=== PATIENT | female | born 1995 | race Caucasian/White ===

== ENCOUNTER → 2016-10-31 | Outpatient (REF) | payer OTHER ==
[~2016-10-31] MED LIST: DORYX
== END ==
LOC: M LAB REF 09:02
PROVIDERS: ATTEND Nurse Practitioner Family
DX: Z79.899 Other long term (current) drug therapy (principal)

== ENCOUNTER → 2017-07-17 | Outpatient (REF) | payer OTHER ==
[2017-07-17 09:36] LABS: ALBUMIN 3.6 GM/DL (3.2-5.2); ANION GAP 5 MEQ/L (8-16); BLOOD UREA NITROGEN 11 MG/DL (7-18); CARBON DIOXIDE LEVEL 30 MEQ/L (21-32); CHLORIDE LEVEL 106 MEQ/L (98-107); CREATININE FOR GFR 0.85 MG/DL (0.55-1.02); GLOMERULAR FILTRATION RATE > 60.0 (>60); GLUCOSE, FASTING 73 MG/DL (70-105); POTASSIUM SERUM 4.4 MEQ/L (3.5-5.1); SODIUM LEVEL 141 MEQ/L (136-145)
== END ==
LOC: M LAB REF 09:22
PROVIDERS: ATTEND Nurse Practitioner Family
DX: L70.0 Acne vulgaris (principal)

== ENCOUNTER → 2018-02-04 | Outpatient (REF) | payer OTHER ==
[2018-02-04 12:36] LABS: ANION GAP 5 MEQ/L (8-16); CARBON DIOXIDE LEVEL 29 MEQ/L (21-32); CHLORIDE LEVEL 105 MEQ/L (98-107); POTASSIUM SERUM 4.6 MEQ/L (3.5-5.1); SODIUM LEVEL 139 MEQ/L (136-145)
== END ==
LOC: M LABDRAW1 11:59
DX: L70.0 Acne vulgaris (principal); Z51.81 Encounter for therapeutic drug level monitoring; Z79.899 Other long term (current) drug therapy

== ENCOUNTER → 2018-07-08 | Outpatient (REF) | payer OTHER ==
[2018-07-08 14:04] LABS: CHLAMYDIA DNA AMPLIFICATION NEGATIVE (NEGATIVE); GC DNA AMPLIFICATION NEGATIVE (NEGATIVE)
== END ==
LOC: M LAB REF 11:21
DX: N39.0 Urinary tract infection, site not specified (principal)

== ENCOUNTER → 2020-04-11 | Outpatient (REF) | payer OTHER ==
[2020-05-28 19:46] LABS: APPEARANCE, URINE CLEAR (CLEAR); BACTERIA, URINE AUTO NEGATIVE (NEGATIVE); BILIRUBIN, URINE AUTO NEGATIVE (NEGATIVE); BLOOD, URINE BLOOD NEGATIVE (NEGATIVE); COLOR, URINE YELLOW (YELLOW); GLUCOSE, URINE (UA) AUTO NEGATIVE (NEGATIVE); KETONE, URINE AUTO NEGATIVE (NEGATIVE); LEUKOCYTE ESTERASE, URINE AUTO NEGATIVE (NEGATIVE); MUCUS, URINE SMALL (NEGATIVE); NITRITE, URINE AUTO NEGATIVE (NEGATIVE); PROTEIN, URINE AUTO NEGATIVE (NEGATIVE); RBC, URINE AUTO 2 /HPF (0-3); SPECIFIC GRAVITY URINE AUTO 1.015 (1.002-1.035); SQUAMOUS EPITHELIAL CELL UR AU 1 /HPF (0-6); UROBILINOGEN, URINE AUTO 0.2 mg/dL (0.0-2.0); WBC, URINE AUTO 1 /HPF (0-3)
[2020-06-07 00:44] LABS: BLOOD UREA NITROGEN 15 MG/DL (7-18); CALCIUM LEVEL 9.5 MG/DL (8.5-10.1); CARBON DIOXIDE LEVEL 30 MEQ/L (21-32); CHLORIDE LEVEL 104 MEQ/L (98-107); CREATININE FOR GFR 0.89 MG/DL (0.55-1.30); GLOMERULAR FILTRATION RATE > 60.0 (>60); GLUCOSE, FASTING 84 MG/DL (70-100); POTASSIUM SERUM 4.9 MEQ/L (3.5-5.1); SODIUM LEVEL 139 MEQ/L (136-145)
== END ==
LOC: M WUC 11:00
PROVIDERS: ATTEND Physician Assistant Medical
DX: R35.0 Frequency of micturition (principal)

== ENCOUNTER → 2021-05-22 | Outpatient (REF) ==
[2021-05-22 13:51] LABS: RSV AMPLIFICATION NEGATIVE (NEGATIVE)
== END ==
LOC: M LABSMTC 09:33
PROVIDERS: ATTEND Pediatrics
DX: Z20.822 Contact with and (suspected) exposure to COVID-19 (principal)

== ENCOUNTER → 2021-05-22 | Outpatient (REF) | payer OTHER | LOC: M LAB REF 16:10 | PROVIDERS: ATTEND Physician Assistant | DX: J02.9 Acute pharyngitis, unspecified (principal) ==

== ENCOUNTER → 2021-07-12 | Outpatient (REF) ==
[2021-07-12 17:15] LABS: RSV AMPLIFICATION NEGATIVE (NEGATIVE)
== END ==
LOC: M EMP 16:02
PROVIDERS: ATTEND Family Medicine
DX: Z20.822 Contact with and (suspected) exposure to COVID-19 (principal)

== ENCOUNTER → 2021-07-17 | Outpatient (REF) | LOC: M LABSMTC 08:57 | PROVIDERS: ATTEND Family Medicine | DX: Z20.822 Contact with and (suspected) exposure to COVID-19 (principal) ==

== ENCOUNTER → 2021-08-21 | Outpatient (CLI) | payer BC, OTHER ==
[2021-08-21 15:14] LABS: BASO # 0.1 10^3/uL (0.0-0.2); BASO % 0.6 % (0.0-1.0); EOS # 0.2 10^3/uL (0.0-0.5); EOS % 2.1 % (0.0-3.0); HEMATOCRIT 36.1 % (36.0-47.0); HEMOGLOBIN 12.1 g/dl (12.0-15.5); LYMPH # 2.1 10^3/uL (1.5-5.0); LYMPH % 19.2 % (24.0-44.0); MEAN CORPUSCULAR HEMOGLOBIN 30.9 pg (27.0-33.0); MEAN CORPUSCULAR HGB CONC 33.5 g/dl (32.0-36.5); MEAN CORPUSCULAR VOLUME 92.3 fl (80.0-96.0); MONO # 0.9 10^3/uL (0.0-0.8); MONO % 8.6 % (2.0-8.0); NEUTROPHILS # 7.5 10^3/uL (1.5-8.5); NEUTROPHILS % 68.6 % (36.0-66.0); PLATELET COUNT, AUTOMATED 334 10^3/uL (150-450); RED BLOOD COUNT 3.91 10^6/uL (4.00-5.40); WHITE BLOOD COUNT 10.9 10^3/uL (4.0-10.0)
[2021-08-21 16:27] LABS: HEPATITIS C VIRUS ABY INDEX 0.1 INDEX (<0.8); HIV 1&2 SCREEN CENTAUR NEGATIVE (NEGATIVE)
== END ==
LOC: M PLALAB 14:00
PROVIDERS: ATTEND Obstetrics & Gynecology
DX: Z34.01 Encounter for supervision of normal first pregnancy, first trimester (principal)

== ENCOUNTER → 2021-09-25 | Outpatient (REF) | LOC: M LABSMTC 12:52 | PROVIDERS: ATTEND Family Medicine | DX: Z11.52 Encounter for screening for COVID-19 (principal) ==

== ENCOUNTER → 2021-10-11 | Outpatient (CLI) | payer BC, OTHER | LOC: M WHC 13:29 | PROVIDERS: ATTEND Obstetrics & Gynecology | DX: Z34.02 Encounter for supervision of normal first pregnancy, second trimester (principal) ==

== ENCOUNTER → 2021-10-26 | Outpatient (CLI) | payer BC, OTHER | LOC: M WHC 07:17 | PROVIDERS: ATTEND Advanced Practice Midwife | DX: Z34.02 Encounter for supervision of normal first pregnancy, second trimester (principal) ==

== ENCOUNTER → 2021-11-09 | Outpatient (CLI) | payer BC, OTHER | LOC: M WHC 09:23 | PROVIDERS: ATTEND Advanced Practice Midwife | DX: O36.5920 Maternal care for other known or suspected poor fetal growth, second trimester, not applicable or unspecified (principal); Z3A.23 23 weeks gestation of pregnancy ==

== ENCOUNTER → 2021-12-07 | Outpatient (CLI) | payer BC, OTHER ==
[2021-12-07 13:23] LABS: HEMATOCRIT 32.3 % (36.0-47.0); HEMOGLOBIN 10.6 g/dl (12.0-15.5); MEAN CORPUSCULAR HEMOGLOBIN 32.1 pg (27.0-33.0); MEAN CORPUSCULAR HGB CONC 32.8 g/dl (32.0-36.5); MEAN CORPUSCULAR VOLUME 97.9 fl (80.0-96.0); PLATELET COUNT, AUTOMATED 268 10^3/uL (150-450); WHITE BLOOD COUNT 13.9 10^3/uL (4.0-10.0)
[2021-12-07 13:33] LABS: ALBUMIN 2.7 GM/DL (3.2-5.2); ALT/SGPT 12 U/L (12-78); BILIRUBIN,TOTAL 0.2 MG/DL (0.2-1.0); BLOOD UREA NITROGEN 6 MG/DL (7-18); CALCIUM LEVEL 8.5 MG/DL (8.5-10.1); CARBON DIOXIDE LEVEL 27 MEQ/L (21-32); CHLORIDE LEVEL 105 MEQ/L (98-107); GLOMERULAR FILTRATION RATE > 60.0 (>60); GLUCOSE CHALLENGE TEST 1 HOUR 140 MG/DL (LESS THAN 140); GLUCOSE, FASTING 140 MG/DL (70-100); POTASSIUM SERUM 4.1 MEQ/L (3.5-5.1); SODIUM LEVEL 137 MEQ/L (136-145); TOTAL PROTEIN 5.8 GM/DL (6.4-8.2)
[2021-12-07 13:41] LABS: CREATININE,RANDOM URINE 91.3 MG/DL; TOTAL PROTEIN,RANDOM URINE 13.4 MG/DL (0.0-12.0)
[2021-12-07 16:09] LABS: GC DNA AMPLIFICATION NEGATIVE (NEGATIVE)
== END ==
LOC: M PLALAB 07:59
PROVIDERS: ATTEND Obstetrics & Gynecology
DX: Z34.92 Encounter for supervision of normal pregnancy, unspecified, second trimester (principal); Z3A.24 24 weeks gestation of pregnancy

== ENCOUNTER → 2021-12-20 | Outpatient (CLI) | payer BC, OTHER | LOC: M LAB 08:09 | PROVIDERS: ATTEND Obstetrics & Gynecology | DX: R73.09 Other abnormal glucose (principal) ==

== ENCOUNTER → 2022-02-12 | Outpatient (REF) | payer BC | LOC: M PLALAB 07:57 | PROVIDERS: ATTEND Advanced Practice Midwife | DX: Z36.85 Encounter for antenatal screening for Streptococcus B (principal) ==

== ENCOUNTER → 2022-02-16 | Outpatient (CLI) | payer BC | LOC: M WHC 07:31 | PROVIDERS: ATTEND Advanced Practice Midwife | DX: O24.419 Gestational diabetes mellitus in pregnancy, unspecified control (principal) ==

== ENCOUNTER 2022-02-24 06:07 | Inpatient (IN) | payer BC ==
[2022-02-24] VITALS (31 sets, daily range): BP systolic 98–163; BP diastolic 53–78
[~2022-02-24] VITALS: Ht 165.1 cm; Wt 76.0 kg
[2022-02-24] MEDS ORDERED: PRENTAB9 PO (06:20)
[2022-02-24] MEDS ORDERED: FAMO10TA50 PO (06:20)
[2022-02-24] MEDS ORDERED: HOME MED LIST COMPLETE! XX SCH (06:25)
[2022-02-24] MEDS ORDERED: PENICILLIN G POTASSIUM IV 5 MU in D5W MINI-BAG PLUS 100 ML IV STA (07:16)
[2022-02-24] MEDS ORDERED: LACTATED RINGER'S 1000 ML IV STA (07:16)
[2022-02-24] MEDS ORDERED: METHYLERGONOVINE MALEATE 0.2 MG/ML VIAL (J2210) IM PRN (07:20)
[2022-02-24] MEDS ORDERED: TRANEXAMIC ACID INJection 1,000 MG in NS 100 ML IV PRN (07:20)
[2022-02-24] MEDS ORDERED: LIDOCAINE 1% MDV 20ML VIAL INFIL PRN (07:20)
[2022-02-24] MEDS ORDERED: LR 1,000 ML IV SCH ×2 (07:20→18:20)
[2022-02-24] MEDS ORDERED: OXYTOCIN DRIP 30 UNITS in IV 1 EA IV PRN (07:20)
[2022-02-24] MEDS ORDERED: CARBOPROST TROMETHAMINE 250 MCG/ML AMP IM PRN (07:20)
[2022-02-24 07:36] LABS: HEMATOCRIT 31.1 % (36.0-47.0); HEMOGLOBIN 10.5 g/dl (12.0-15.5); MEAN CORPUSCULAR HEMOGLOBIN 31.8 pg (27.0-33.0); MEAN CORPUSCULAR HGB CONC 33.8 g/dl (32.0-36.5); MEAN CORPUSCULAR VOLUME 94.2 fl (80.0-96.0); PLATELET COUNT, AUTOMATED 234 10^3/uL (150-450); WHITE BLOOD COUNT 12.5 10^3/uL (4.0-10.0)
[2022-02-24] MEDS ORDERED: FENTANYL 2MCG/ML ROPIVACAINE 0.2% IN 0.9% NACL 100ML IVBAG As Ordered ONE (08:18)
[2022-02-24] MEDS: PRENATAL VITAMINS CHEWABLE TABLET PO SCH (09:00)
[2022-02-24] MEDS ORDERED: OXYTOCIN DRIP 30 UNITS in IV 1 EA IV SCH ×2 (09:35→18:20)
[2022-02-24] MEDS ORDERED: LR 500 ML IV PRN (09:40)
[2022-02-24] MEDS ORDERED: NALOXONE INJ 0.4MG/1ML VIAL (J2310 PER 1MG) IV PRN (09:40)
[2022-02-24] MEDS ORDERED: ONDANSETRON 4MG 2ML VIAL IV PRN (09:40)
[2022-02-24] MEDS ORDERED: diphenhydrAMINE 50MG/ML VIAL (J1200) IV PRN (09:40)
[2022-02-24] MEDS ORDERED: EPIDURAL/PCA KEYS XX PRN (09:40)
[2022-02-24] MEDS ORDERED: ePHEDrine SULFATE 25 MG/5 ML(5MG/ML) SYRINGE IVP PRN (09:40)
[2022-02-24] MEDS ORDERED: FENTANYL/ROPIVACAINE/NACL BAG 100 ML EPIDURAL SCH (09:40)
[2022-02-24] MEDS: PENICILLIN G POTASSIUM IV 2.5 MU in IV 1 EA IV SCH ×2 (11:43→15:57)
[2022-02-24] MEDS: FAMOTIDINE 20 MG TAB PO SCH (12:40)
[2022-02-24] MEDS ORDERED: ACETAMINOPHEN 500 MG TAB PO PRN (18:20)
[2022-02-24] MEDS ORDERED: METHYLERGONOVINE MALEATE 0.2 MG TAB PO PRN (18:20)
[2022-02-24] MEDS ORDERED: RHOGAM 300 MCG (1500 IU) INJ (J2790) IM SCH (18:20)
[2022-02-24] MEDS ORDERED: ACETAMINOPHEN TAB 650MG DOSE (2X325MG) PO PRN (18:20)
[2022-02-24] MEDS ORDERED: DOCUSATE SODIUM 100MG CAPSULE PO PRN (18:20)
[2022-02-24] MEDS ORDERED: IBUPROFEN 600MG TAB PO PRN (18:20)
[2022-02-25 05:43] VITALS: BP 114/60
[2022-02-25] MEDS: DIBUCAINE 1% OINTMENT 30GM TOP PRN ×2 (06:51→17:29)
[2022-02-25] MEDS: PRENATAL VITAMINS CHEWABLE TABLET PO SCH (08:16)
[2022-02-25] MEDS: FAMOTIDINE 20 MG TAB PO SCH (08:18)
[2022-02-25 18:00] VITALS: BP 111/63
[2022-02-25] MEDS: IBUPROFEN 800 MG TAB PO PRN (20:24)
[2022-02-26 06:18] VITALS: BP 112/56
[2022-02-26] MEDS: PRENATAL VITAMINS CHEWABLE TABLET PO SCH (08:42)
[2022-02-26] MEDS: FAMOTIDINE 20 MG TAB PO SCH (08:42)
[2022-02-26] MEDS: IBUPROFEN 800 MG TAB PO PRN (08:43)
[2022-02-26] MEDS ORDERED: MEASLES,MUMPS,RUBELLA VACCINE INJ (MMR-II) (90707) SC.IMMUN ONE (09:00)
[2022-02-26] MEDS ORDERED: IBUP80TA PO (12:36)
[2022-02-26] MEDS ORDERED: ACET-683 PO (12:36)
== END 2022-02-26 13:15 | disposition home or self-care (01) | DRG 560 ==
LOC: M LDO 06:07 → M LDI 07:06 → M OBS 22:51
PROVIDERS: ADMIT Obstetrics & Gynecology; ATTEND Obstetrics & Gynecology
PROC: 10E0XZZ Delivery of Products of Conception, External Approach (ICD-10-PCS; principal; 2022-02-24)
PROC: 0HQ9XZZ Repair Perineum Skin, External Approach (ICD-10-PCS; 2022-02-24)
DX: O24.429 Gestational diabetes mellitus in childbirth, unspecified control (principal); O99.824 Streptococcus B carrier state complicating childbirth; Z37.0 Single live birth; Z3A.37 37 weeks gestation of pregnancy; O70.0 First degree perineal laceration during delivery

== ENCOUNTER 2022-07-12 18:29 | Emergency (ER) | payer BC ==
[~2022-07-12] VITALS: Ht 165.1 cm; Wt 65.0 kg
[~2022-07-12 18:29] MED LIST changes: +ACET-683 PO; +FAMO10TA50 PO; +IBUP80TA PO; +PRENTAB9 PO
[2022-07-12 18:31] VITALS: BP 123/58
[2022-07-12] MEDS ORDERED: GLYC2TAB18 PO (19:25)
== END 2022-07-12 23:48 | disposition left against medical advice (07) ==
LOC: M ED 18:29
DX: Z53.21 Procedure and treatment not carried out due to patient leaving prior to being seen by health care provider (principal)

== ENCOUNTER → 2022-08-08 | Outpatient (REF) | payer BC, OTHER ==
[~2022-08-08] MED LIST changes: +GLYC2TAB18 PO
[2022-08-08 21:43] LABS: GC DNA AMPLIFICATION NEGATIVE (NEGATIVE)
== END ==
LOC: M SFHCWAGY 17:15
PROVIDERS: ATTEND Obstetrics & Gynecology
DX: Z11.3 Encounter for screening for infections with a predominantly sexual mode of transmission (principal); Z12.4 Encounter for screening for malignant neoplasm of cervix
CPT/HCPCS: 87661; 87810; 87850; G0123

== ENCOUNTER 2022-10-05 22:18 | Emergency (ER) | payer OTHER ==
[~2022-10-05] VITALS: Ht 165.1 cm; Wt 65.8 kg
[2022-10-05 22:18] VITALS: BP 133/79
[2022-10-06] MEDS ORDERED: diazePAM 10MG/2ML SYRINGE IM ONE (00:40)
[2022-10-06 01:19] LABS: APPEARANCE, URINE MANUAL CLEAR (CLEAR); COLOR, URINE MANUAL LT YELLOW (YELLOW)
[2022-10-06 01:23] LABS: BILIRUBIN, URINE MANUAL NEGATIVE (NEGATIVE); BLOOD URINE MANUAL NEGATIVE (NEGATIVE); GLUCOSE, URINE (UA) MANUAL NEGATIVE (NEGATIVE); KETONE, URINE MANUAL NEGATIVE (NEGATIVE); NITRITE, URINE MANUAL NEGATIVE (NEGATIVE); PROTEIN, URINE MANUAL NEGATIVE (NEGATIVE); SPECIFIC GRAVITY,URINE MANUAL 1.015 (1.002-1.035); UROBILINOGEN, URINE MANUAL NORMAL (NORMAL)
[2022-10-06 01:25] LABS: LEUKOCYTE ESTERASE, URINE MAN POSITIVE (NEGATIVE)
[2022-10-06 01:43] LABS: RBC, URINE NONE SEEN /hpf (0-3); SQUAMOUS EPITHELIAL CELL URINE SMALL AMOUNT /hpf (SMALL AMT)
[2022-10-06 01:44] LABS: BACTERIA, URINE SMALL AMOUNT; HYALINE CAST, URINE NONE SEEN /lpf (0-1)
[2022-10-06] MEDS ORDERED: VALI2TAB PO (01:55)
== END 2022-10-06 02:07 | disposition home or self-care (01) ==
LOC: M ED 22:18
DX: S23.3XXA Sprain of ligaments of thoracic spine, initial encounter (principal); M54.50 Low back pain, unspecified; F41.9 Anxiety disorder, unspecified; Z79.899 Other long term (current) drug therapy
CPT/HCPCS: 72072; 72110; 81000; 96372; 99282; J3360

== ENCOUNTER 2023-01-22 10:58 | Observation (INO) | payer OTHER ==
[~2023-01-22] VITALS: Ht 165.1 cm; Wt 68.7 kg
[~2023-01-22 10:58] MED LIST changes: +VALI2TAB PO
[2023-01-22 12:59] LABS: BASO # 0.1 10^3/uL (0.0-0.2); BASO % 0.5 % (0.0-1.0); EOS % 0.1 % (0.0-3.0); HEMOGLOBIN 13.2 g/dl (12.0-15.5); LYMPH # 0.6 10^3/uL (1.5-5.0); LYMPH % 6.2 % (24.0-44.0); MEAN CORPUSCULAR HEMOGLOBIN 30.4 pg (27.0-33.0); MEAN CORPUSCULAR HGB CONC 33.8 g/dl (32.0-36.5); MEAN CORPUSCULAR VOLUME 89.9 fl (80.0-96.0); MONO # 0.7 10^3/uL (0.0-0.8); MONO % 6.5 % (2.0-8.0); NEUTROPHILS # 8.9 10^3/uL (1.5-8.5); NEUTROPHILS % 86.2 % (36.0-66.0); PLATELET COUNT, AUTOMATED 323 10^3/uL (150-450); RED BLOOD COUNT 4.34 10^6/uL (4.00-5.40); WHITE BLOOD COUNT 10.3 10^3/uL (4.0-10.0)
[2023-01-22 13:19] LABS: LIPASE 43 U/L (12-53)
[2023-01-22 13:21] LABS: ALBUMIN 4.2 G/DL (3.2-5.2); ALKALINE PHOSPHATASE 105 U/L (46-116); ALT/SGPT 528 U/L (7.0-40); AST/SGOT 828 U/L (<34); BILIRUBIN,DIRECT 0.9 MG/DL (<0.4); BILIRUBIN,TOTAL 1.7 MG/DL (0.3-1.2); BLOOD UREA NITROGEN 16 MG/DL (9-23); CALCIUM LEVEL 9.5 MG/DL (8.5-10.1); CARBON DIOXIDE LEVEL 28 MMOL/L (20-31); CHLORIDE LEVEL 103 MMOL/L (98-107); CREATININE FOR GFR 0.84 MG/DL (0.55-1.30); GLOMERULAR FILTRATION RATE > 60.0 (>60); GLUCOSE, FASTING 123 MG/DL (60-100); POTASSIUM SERUM 4.1 MMOL/L (3.5-5.1); SODIUM LEVEL 139 MMOL/L (136-145); TOTAL PROTEIN 7.2 G/DL (5.7-8.2)
[2023-01-22] MEDS ORDERED: NS 1,000 ML IV ONE (13:55)
[2023-01-22] MEDS ORDERED: MORPHINE 4 MG/ML 1ML VIAL IV ONE (13:55)
[2023-01-22] MEDS ORDERED: ONDANSETRON 4MG 2ML VIAL IV ONE (13:55)
[2023-01-22 15:34] LABS: APPEARANCE, URINE HAZY (CLEAR); BACTERIA, URINE AUTO NEGATIVE (NEGATIVE); BILIRUBIN, URINE AUTO NEGATIVE (NEGATIVE); BLOOD, URINE BLOOD NEGATIVE (NEGATIVE); COLOR, URINE AMBER (YELLOW); GLUCOSE, URINE (UA) AUTO NEGATIVE (NEGATIVE); KETONE, URINE AUTO 1+ mg/dL (NEGATIVE); LEUKOCYTE ESTERASE, URINE AUTO TRACE (NEGATIVE); MUCUS, URINE SMALL (NEGATIVE); NITRITE, URINE AUTO NEGATIVE (NEGATIVE); PROTEIN, URINE AUTO NEGATIVE (NEGATIVE); RBC, URINE AUTO 0 /HPF (0-3); SPECIFIC GRAVITY URINE AUTO 1.019 (1.002-1.035); SQUAMOUS EPITHELIAL CELL UR AU 10 /HPF (0-6); UROBILINOGEN, URINE AUTO 0.2 mg/dL (0.0-2.0); WBC, URINE AUTO 2 /HPF (0-3)
[2023-01-22] MEDS ORDERED: ISOVUE-370 76% 100ML VIAL As Ordered ONE (15:43)
[2023-01-22] MEDS ORDERED: DIAZ2TAB PO (16:01)
[2023-01-22] MEDS ORDERED: SPIR50TA4 PO (16:01)
[2023-01-22] MEDS ORDERED: METH-1164 PO (16:01)
[2023-01-22] MEDS ORDERED: HOME MED LIST COMPLETE! XX SCH (16:05)
[2023-01-22 16:13] LABS: RSV AMPLIFICATION NEGATIVE (NEGATIVE)
[2023-01-22] MEDS ORDERED: MORPHINE 2 MG/ML 1ML VIAL IV PRN (16:40)
[2023-01-22] MEDS ORDERED: ONDANSETRON 4MG 2ML VIAL IV PRN (16:40)
[2023-01-22] MEDS: PANTOPRAZOLE 40MG VIAL IV SCH (17:36)
[2023-01-22] MEDS: NS 1,000 ML IV SCH (17:36)
[2023-01-22 18:13] LABS: INR 0.97; PROTHROMBIN TIME 13.1 SECONDS (12.5-14.5)
[2023-01-22 18:29] LABS: AMPHETAMINES LEVEL URINE NEGATIVE (NEGATIVE); BENZODIAZEPINES URINE NEGATIVE (NEGATIVE); CANNABINOIDS URINE NEGATIVE (NEGATIVE); METHADONE URINE NEGATIVE (NEGATIVE); PHENCYCLIDINE URINE NEGATIVE (NEGATIVE)
[2023-01-22 18:30] LABS: BARBITURATES URINE NEGATIVE (NEGATIVE); COCAINE METABOLITE URINE NEGATIVE (NEGATIVE)
[2023-01-22 18:32] LABS: OPIATES URINE POSITIVE (NEGATIVE)
[2023-01-22 18:33] LABS: IRON (FE) 90 UG/DL (50-170); PERCENT SATURATION 26.5 % (13.2-45.0); TOTAL IRON BINDING CAPACITY 339 UG/DL (250-425)
[2023-01-22 18:47] LABS: HEPATITIS B SURFACE ANTIGEN NEGATIVE (NEGATIVE)
[2023-01-22 18:56] VITALS: BP 112/56
[2023-01-22 19:08] LABS: HEPATITIS B CORE ANTIBODY IGM NEGATIVE (NEGATIVE)
[2023-01-22 19:09] LABS: HEPATITIS C VIRUS ABY INDEX 0.1 INDEX (<0.8)
[2023-01-22 19:10] LABS: ACETAMINOPHEN LEVEL 2.9 UG/ML (10.0-20.0)
[2023-01-22 20:00] VITALS: BP 124/60
[2023-01-23] VITALS: BP 112/55
[2023-01-23] MEDS: NS 1,000 ML IV SCH ×3 (00:53→18:25)
[2023-01-23 06:00] VITALS: BP 112/55
[2023-01-23 06:38] LABS: HEMATOCRIT 32.7 % (36.0-47.0); MEAN CORPUSCULAR HEMOGLOBIN 30.4 pg (27.0-33.0); MEAN CORPUSCULAR HGB CONC 33.3 g/dl (32.0-36.5); MEAN CORPUSCULAR VOLUME 91.3 fl (80.0-96.0); PLATELET COUNT, AUTOMATED 238 10^3/uL (150-450); RED BLOOD COUNT 3.58 10^6/uL (4.00-5.40); WHITE BLOOD COUNT 4.4 10^3/uL (4.0-10.0)
[2023-01-23 06:39] LABS: INR 1.09; PROTHROMBIN TIME 14.3 SECONDS (12.5-14.5)
[2023-01-23 06:40] LABS: PARTIAL THROMBOPLASTIN TIME 24.8 SECONDS (24.8-34.2)
[2023-01-23 06:41] LABS: HEMOGLOBIN 10.9 g/dl (12.0-15.5)
[2023-01-23 07:03] LABS: ALKALINE PHOSPHATASE 107 U/L (46-116); ALT/SGPT 891 U/L (7.0-40); AST/SGOT 944 U/L (<34); BILIRUBIN,TOTAL 1.7 MG/DL (0.3-1.2); BLOOD UREA NITROGEN 10 MG/DL (9-23); CALCIUM LEVEL 7.6 MG/DL (8.5-10.1); CARBON DIOXIDE LEVEL 26 MMOL/L (20-31); CHLORIDE LEVEL 111 MMOL/L (98-107); CREATININE FOR GFR 0.84 MG/DL (0.55-1.30); GLOMERULAR FILTRATION RATE > 60.0 (>60); GLUCOSE, FASTING 88 MG/DL (60-100); SODIUM LEVEL 143 MMOL/L (136-145); TOTAL PROTEIN 5.1 G/DL (5.7-8.2)
[2023-01-23 08:00] VITALS: BP 119/64
[2023-01-23] MEDS ORDERED: CALCIUM GLUCONATE 1,000 MG in D5W MINI-BAG PLUS 100 ML IV ONE (08:00)
[2023-01-23] MEDS ORDERED: KETOROLAC 30 MG/ML 1ML VIAL IV ONE (10:05)
[2023-01-23] MEDS ORDERED: MORPHINE 2 MG/ML 1ML VIAL IV PRN (14:05)
[2023-01-23 16:00] VITALS: BP 126/59
[2023-01-23] MEDS: PANTOPRAZOLE 40MG VIAL IV SCH (18:21)
[2023-01-23 20:00] VITALS: BP 121/59
[2023-01-24 04:00] VITALS: BP 136/63
[2023-01-24] MEDS: NS 1,000 ML IV SCH (04:14)
[2023-01-24 06:54] LABS: HEMATOCRIT 36.3 % (36.0-47.0); HEMOGLOBIN 11.9 g/dl (12.0-15.5); MEAN CORPUSCULAR HEMOGLOBIN 30.6 pg (27.0-33.0); MEAN CORPUSCULAR HGB CONC 32.8 g/dl (32.0-36.5); MEAN CORPUSCULAR VOLUME 93.3 fl (80.0-96.0); PLATELET COUNT, AUTOMATED 280 10^3/uL (150-450); RED BLOOD COUNT 3.89 10^6/uL (4.00-5.40); WHITE BLOOD COUNT 5.1 10^3/uL (4.0-10.0)
[2023-01-24 07:10] LABS: INR 0.98; PROTHROMBIN TIME 13.2 SECONDS (12.5-14.5)
[2023-01-24 07:11] LABS: PARTIAL THROMBOPLASTIN TIME 24.7 SECONDS (24.8-34.2)
[2023-01-24 07:22] LABS: ALBUMIN 3.3 G/DL (3.2-5.2); ALKALINE PHOSPHATASE 121 U/L (46-116); ALT/SGPT 657 U/L (7.0-40); AST/SGOT 294 U/L (<34); BILIRUBIN,TOTAL 0.5 MG/DL (0.3-1.2); BLOOD UREA NITROGEN 8 MG/DL (9-23); CALCIUM LEVEL 8.5 MG/DL (8.5-10.1); CARBON DIOXIDE LEVEL 28 MMOL/L (20-31); CHLORIDE LEVEL 106 MMOL/L (98-107); CREATININE FOR GFR 0.75 MG/DL (0.55-1.30); GLOMERULAR FILTRATION RATE > 60.0 (>60); GLUCOSE, FASTING 93 MG/DL (60-100); SODIUM LEVEL 140 MMOL/L (136-145); TOTAL PROTEIN 5.9 G/DL (5.7-8.2)
[2023-01-25 17:09] LABS: ANCA-ATYPICAL <1:20 titer (Neg:<1:20); ANTI-MITOCHONDRIAL ANTIBODY <20.0 Units (0.0-20.0); ANTINUCLEAR ANTIBODIES DIRECT Negative (Negative); CERULOPLASMIN 24.3 mg/dL (19.0-39.0); CYTOPLASMIC NEUTROP AB ANCA-C <1:20 titer (Neg:<1:20); LIVER-KIDNEY MICROSOMAL ABY <20.1 Units (0.0-20.0); PERINUCLEAR AB ANCA-P <1:20 titer (Neg:<1:20)
== END 2023-01-24 10:35 | disposition home or self-care (01) ==
LOC: M ED 10:58 → M ED INP 10:59 → M PED 18:27
PROVIDERS: ADMIT Internal Medicine; ATTEND Internal Medicine
DX: B17.9 Acute viral hepatitis, unspecified (principal); M54.50 Low back pain, unspecified; E83.51 Hypocalcemia; R51.9 Headache, unspecified; L70.9 Acne, unspecified; Z79.899 Other long term (current) drug therapy
CPT/HCPCS: 36415; 74176; 74177; 76705; 80048; 80053; 80076; 80143; 80307; 81001; 82390; 82977; 83550; 83690; 84702; 85025; 85027; 85610; 85730; 86037; 86038; 86255; 86376; 86705; 86709; 86803; 87340; 87631; 96361; 96374; 96375; 96376; 99284; C9113; J0612; J1885; J2405; Q9967

== ENCOUNTER → 2023-01-25 | Outpatient (REF) | payer OTHER ==
[~2023-01-25] MED LIST changes: +DIAZ2TAB PO; +METH-1164 PO; +SPIR50TA4 PO
[2023-01-25 16:57] LABS: ALBUMIN 3.8 G/DL (3.2-5.2); ALKALINE PHOSPHATASE 112 U/L (46-116); ALT/SGPT 451 U/L (7.0-40); AST/SGOT 77 U/L (<34); BILIRUBIN,TOTAL 0.4 MG/DL (0.3-1.2); BLOOD UREA NITROGEN 11 MG/DL (9-23); CALCIUM LEVEL 8.9 MG/DL (8.5-10.1); CARBON DIOXIDE LEVEL 28 MMOL/L (20-31); CHLORIDE LEVEL 105 MMOL/L (98-107); CREATININE FOR GFR 0.75 MG/DL (0.55-1.30); GLOMERULAR FILTRATION RATE > 60.0 (>60); GLUCOSE, FASTING 126 MG/DL (60-100); POTASSIUM SERUM 3.6 MMOL/L (3.5-5.1); SODIUM LEVEL 141 MMOL/L (136-145); TOTAL PROTEIN 6.5 G/DL (5.7-8.2)
== END ==
LOC: M LABWUC 16:19
PROVIDERS: ATTEND Nurse Practitioner Family
DX: R74.01 Elevation of levels of liver transaminase levels (principal)

== ENCOUNTER → 2023-02-01 | Outpatient (CLI) | payer OTHER ==
[2023-02-01 20:31] LABS: ALBUMIN 4.3 G/DL (3.2-5.2); ALKALINE PHOSPHATASE 90 U/L (46-116); ALT/SGPT 80 U/L (7.0-40); AST/SGOT 13 U/L (<34); BILIRUBIN,TOTAL 0.6 MG/DL (0.3-1.2); BLOOD UREA NITROGEN 15 MG/DL (9-23); CALCIUM LEVEL 9.1 MG/DL (8.5-10.1); CARBON DIOXIDE LEVEL 28 MMOL/L (20-31); CHLORIDE LEVEL 103 MMOL/L (98-107); CREATININE FOR GFR 0.76 MG/DL (0.55-1.30); GLOMERULAR FILTRATION RATE > 60.0 (>60); GLUCOSE, FASTING 85 MG/DL (60-100); POTASSIUM SERUM 4.4 MMOL/L (3.5-5.1); SODIUM LEVEL 138 MMOL/L (136-145); TOTAL PROTEIN 7.1 G/DL (5.7-8.2)
== END ==
LOC: M WUC 13:17
PROVIDERS: ATTEND Family Medicine
DX: R74.01 Elevation of levels of liver transaminase levels (principal)

== ENCOUNTER → 2023-02-05 | Outpatient (CLI) | payer OTHER | LOC: M WHC 07:11 | PROVIDERS: ATTEND Nurse Practitioner Family | DX: N63.21 Unspecified lump in the left breast, upper outer quadrant (principal) ==

== ENCOUNTER 2023-02-10 15:18 | Emergency (ER) | payer OTHER ==
[~2023-02-10] VITALS: Ht 165.1 cm; Wt 63.3 kg
[2023-02-10] MEDS ORDERED: ONDANSETRON 4MG 2ML VIAL IV ONE (16:10)
[2023-02-10] MEDS ORDERED: MORPHINE 4 MG/ML 1ML VIAL IV ONE (16:10)
[2023-02-10] MEDS ORDERED: NS 1,000 ML IV ONE (16:10)
[2023-02-10 16:17] LABS: BASO # 0.1 10^3/uL (0.0-0.2); BASO % 1.1 % (0.0-1.0); EOS # 0.1 10^3/uL (0.0-0.5); EOS % 2.2 % (0.0-3.0); HEMATOCRIT 40.7 % (36.0-47.0); HEMOGLOBIN 13.5 g/dl (12.0-15.5); LYMPH # 1.7 10^3/uL (1.5-5.0); LYMPH % 27.4 % (24.0-44.0); MEAN CORPUSCULAR HEMOGLOBIN 29.9 pg (27.0-33.0); MEAN CORPUSCULAR HGB CONC 33.2 g/dl (32.0-36.5); MEAN CORPUSCULAR VOLUME 90.2 fl (80.0-96.0); MONO # 0.6 10^3/uL (0.0-0.8); MONO % 8.7 % (2.0-8.0); NEUTROPHILS # 3.8 10^3/uL (1.5-8.5); NEUTROPHILS % 60.3 % (36.0-66.0); PLATELET COUNT, AUTOMATED 357 10^3/uL (150-450); RED BLOOD COUNT 4.51 10^6/uL (4.00-5.40); WHITE BLOOD COUNT 6.4 10^3/uL (4.0-10.0)
[2023-02-10 16:38] LABS: ALBUMIN 4.4 G/DL (3.2-5.2); BILIRUBIN,DIRECT 0.1 MG/DL (<0.4); BILIRUBIN,TOTAL 0.5 MG/DL (0.3-1.2); TOTAL PROTEIN 7.2 G/DL (5.7-8.2)
[2023-02-10] MEDS ORDERED: diphenhydrAMINE 50MG/ML VIAL IV ONE (16:55)
[2023-02-10 18:52] VITALS: BP 115/71; TEMP 98.4; O2SAT 99
== END 2023-02-10 19:23 | disposition home or self-care (01) ==
LOC: M ED 15:18
DX: M54.50 Low back pain, unspecified (principal); R11.0 Nausea; F10.10 Alcohol abuse, uncomplicated
CPT/HCPCS: 74176; 80047; 80076; 81001; 83690; 84702; 85025; 87086; 96361; 96374; 96375; 99284; J1200; J2405

== ENCOUNTER → 2023-02-25 | Outpatient (CLI) | payer OTHER ==
[2023-02-25 16:58] LABS: ALBUMIN 4.3 G/DL (3.2-5.2); ALKALINE PHOSPHATASE 66 U/L (46-116); ALT/SGPT 11 U/L (7.0-40); AST/SGOT < 8 U/L (<34); BILIRUBIN,DIRECT 0.2 MG/DL (<0.4); BILIRUBIN,TOTAL 0.7 MG/DL (0.3-1.2); TOTAL PROTEIN 6.7 G/DL (5.7-8.2)
== END ==
LOC: M LAB 15:54
PROVIDERS: ATTEND Internal Medicine Gastroenterology
DX: R74.01 Elevation of levels of liver transaminase levels (principal)

== ENCOUNTER → 2023-09-11 | Outpatient (CLI) | payer OTHER | LOC: M WHC 08:02 | PROVIDERS: ATTEND Nurse Practitioner Family | DX: N63.21 Unspecified lump in the left breast, upper outer quadrant (principal); R92.8 Other abnormal and inconclusive findings on diagnostic imaging of breast ==

== ENCOUNTER → 2023-11-06 | Outpatient (REF) | payer OTHER | LOC: M SFHCWAGY 15:33 | PROVIDERS: ATTEND Obstetrics & Gynecology | DX: Z12.4 Encounter for screening for malignant neoplasm of cervix (principal) ==

== ENCOUNTER 2024-01-11 02:10 | Emergency (ER) | payer OTHER ==
[~2024-01-11] VITALS: Ht 165.1 cm; Wt 64.6 kg
[2024-01-11] MEDS ORDERED: BENZ1LOZ9 PO (06:05)
[2024-01-11 06:13] VITALS: BP 116/75; TEMP 97.6; O2SAT 100
== END 2024-01-11 06:20 | disposition home or self-care (01) ==
LOC: M ED 02:10
DX: J02.9 Acute pharyngitis, unspecified (principal); Z79.1 Long term (current) use of non-steroidal anti-inflammatories (NSAID); Z79.899 Other long term (current) drug therapy

== ENCOUNTER → 2024-11-11 | Outpatient (CLI) | payer OTHER ==
[~2024-11-11] MED LIST changes: +BENZ1LOZ9 PO
== END ==
LOC: M LAB 07:31
PROVIDERS: ATTEND Obstetrics & Gynecology
DX: Z86.32 Personal history of gestational diabetes (principal)

== ENCOUNTER → 2024-11-23 | Outpatient (CLI) | payer OTHER | LOC: M RAD 07:54 | PROVIDERS: ATTEND Physician Assistant | DX: J32.8 Other chronic sinusitis (principal) ==

== ENCOUNTER 2025-03-08 10:21 | Day surgery (SDC) | payer OTHER ==
[~2025-03-08] VITALS: Ht 165.1 cm; Wt 63.0 kg
[~2025-03-08 10:21] MED LIST changes: +MULTTAB20 PO; +VENTAER INH
[2025-03-08] MEDS ORDERED: ROCURONIUM BROMIDE 50MG/5ML VIAL As Ordered ONE (13:27)
[2025-03-08] MEDS ORDERED: LIDOCAINE 2% 100 MG/5 ML SDV (FOR ANES.) As Ordered ONE (13:27)
[2025-03-08] MEDS ORDERED: ONDANSETRON 4MG 2ML VIAL As Ordered ONE (13:27)
[2025-03-08] MEDS ORDERED: dexAMETHasone 4 MG/ML 1 ML VIAL As Ordered ONE (13:27)
[2025-03-08] MEDS ORDERED: MIDAZOLAM INJ 2 MG/2 ML VIAL As Ordered ONE (13:30)
[2025-03-08] MEDS ORDERED: ACETAMINOPHEN 1000MG/100ML IV BAG As Ordered ONE (14:11)
[2025-03-08] MEDS: COCAINE 4% 4 ML NASAL SOLUTION BTL As Ordered ONE (14:13)
[2025-03-08] MEDS ORDERED: dexmedeTOMIDine (4 MCG/ML) 200 MCG/50 ML BTL As Ordered ONE (14:15)
[2025-03-08] MEDS: OXYMETAZOLINE 0.05% NASAL SPRAY As Ordered ONE (14:20)
[2025-03-08] MEDS: METHYLENE BLUE 0.5% (5 MG/ML) 10 ML AMP As Ordered ONE (14:20)
[2025-03-08] MEDS: LIDOCAINE W/EPINEPHrine 1% 20 ML VIAL As Ordered ONE (15:00)
[2025-03-08] MEDS ORDERED: ESMOLOL 100 MG/10 ML VIAL As Ordered ONE (15:24)
[2025-03-08] MEDS ORDERED: SUGAMMADEX SODIUM 500 MG/5 ML VIAL As Ordered ONE (16:03)
[2025-03-08] MEDS ORDERED: traMADol 50 MG TAB PO ONE (16:15)
[2025-03-08] MEDS ORDERED: HYDROMORPHONE HCL 0.5 MG/0.5 ML SYRINGE IV PRN (16:15)
[2025-03-08] MEDS: ONDANSETRON 4MG 2ML VIAL IV PRN (17:00)
[2025-03-08 18:30] VITALS: BP 117/66; TEMP 97.2; O2SAT 99
== END 2025-03-08 18:40 | disposition home or self-care (01) ==
LOC: M SDC 10:21
PROVIDERS: ATTEND Otolaryngology
DX: J34.2 Deviated nasal septum (principal); J34.3 Hypertrophy of nasal turbinates; J45.909 Unspecified asthma, uncomplicated; Z79.51 Long term (current) use of inhaled steroids; Z79.899 Other long term (current) drug therapy; F41.9 Anxiety disorder, unspecified
CPT/HCPCS: 30140; 30520; 31253; 31267; 61782; 81025; 88305; C9143; J0131; J1100; J1805; J2250; J2405; J2765; J3010; Q9968